=== PATIENT | female | born 1985 | race Caucasian/White ===

== ENCOUNTER 2019-07-30 11:14 | Emergency (ER) | payer OTHER ==
[2019-07-30] MEDS ORDERED: PROMETHAZINE INJ 25 MG/ML AMP ONE (11:58)
[2019-07-30 11:59] LABS: Absolute Lymphocytes (CBC) 1.9 K/uL (0.7-4.9); Basophils % 0.8 % (0-1.3); Hematocrit 38.4 % (36.0-45.0); Lymphocytes % 23.1 % (15.3-44.8); MPV 8.4 fL (7.6-11.3); RBC Red Blood Cell Count 5.21 M/uL (3.86-4.86)
--- NOTE | 2019-07-30 11:59 | RAD REPORT ---
EXAM DESCRIPTION: Dequan Single View07/30/2019 11:52 am CLINICAL HISTORY: Chest pain COMPARISON: none FINDINGS: The lungs appear clear of acute infiltrate. The heart is normal size IMPRESSION: No acute abnormalities displayed
--- NOTE | 2019-07-30 12:03 | RAD REPORT ---
EXAM DESCRIPTION: CT - Head Brain Wo Cont - 07/30/2019 11:53 am CLINICAL HISTORY: Headache COMPARISON: None. TECHNIQUE: Computed axial tomography of the head was obtained. IV contrast was not requested. All CT scans are performed using dose optimization technique as appropriate and may include automated exposure control or mA/KV adjustment according to patient size. FINDINGS: An intracranial bleed is not seen . The ventricles are normal in caliber. No extra-axial fluid collection is noted. Fluid within the sinuses/ mastoids is not seen. IMPRESSION: No acute intracranial abnormality is seen. If patient's symptoms persist MRI of the bra in would be recommended.
[2019-07-30 12:04] LABS: Protime INR 0.99
[2019-07-30 12:05] LABS: Urine Blood NEGATIVE (NEG); Urine Glucose NEGATIVE (NEG); Urine Protein NEGATIVE (NEG); Urine Specific Gravity <1.005 (1.005-1.030)
[2019-07-30 12:09] LABS: Barbiturates NEGATIVE (NEGATIVE); Benzodiazepines NEGATIVE (NEGATIVE); Cocaine NEGATIVE (NEGATIVE); METHAMPHETAM NEGATIVE (NEGATIVE); Methadone NEGATIVE (NEGATIVE); Opiates NEGATIVE (NEGATIVE); Phencyclidine NEGATIVE (NEGATIVE); THC Cannibis POSITIVE (NEGATIVE)
[2019-07-30 12:20] LABS: ALT/SGPT 182 U/L (12-78); AST/SGOT 119 U/L (15-37); Albumin 3.8 g/dL (3.4-5.0); Alkaline Phosphatase 48 U/L (45-117); BUN Blood Urea Nitrogen 11 mg/dL (7-18); Bicarbonate 25 mmol/L (21-32); Bilirubin Direct 0.2 mg/dL (0-0.2); Bilirubin Total 0.4 mg/dL (0.2-1.0); Glucose Level 84 mg/dL (74-106); Magnesium 2.3 mg/dL (1.8-2.4); NT PRO-BNP 97 pg/mL (<125); Potassium 4.3 mmol/L (3.5-5.1); Protein, Total 8.6 g/dL (6.4-8.2); Sodium Level 137 mmol/L (136-145); Troponin (Emerg Dept Use Only) < 0.02 ng/mL (0.0-0.045)
--- NOTE | 2019-07-30 12:47 | EKG ---
Test Date: 2019-07-30 Test Time: 11:26:12 Electrician Master: ZANDER MEASUREMENT RESULTS: Intervals: Rate: 74 OH: 138 QRSD: 86 QT: 402 QTc: 446 [place]: P: 30 OH: 138 QRS: 9 T: 24 INTERPRETIVE STATEMENTS: Normal sinus rhythm Normal ECG No previous ECG available for comparison Electronically Signed On 07-30-19 12:46:50 INFORMATION SYSTEMS SPECIALIST by Steve Delvalle
--- NOTE | 2019-07-30 13:00 | RAD REPORT ---
EXAM DESCRIPTION: CT - Angio Aorta For Dissection - 07/30/2019 12:48 pm CLINICAL HISTORY: . Chest and abdominal pain COMPARISON: None TECHNIQUE: Computed tomography angiography of the chest, abdomen pelvis were obtained. 100 cc Isovue 370 was administered intravenously. Coronal and sagittal reconstruction were performed. MIP 3D reconstruction was performed All CT scans are performed using dose optimization technique as appropriate and may include automated exposure control or mA/KV adjustment according to patient size. FINDINGS: An aortic dissection is not seen. An aortic aneurysm is not displayed. The celiac, SMA and SÁNCHEZ are patent . A lung consolidation is not present. A pericardial effusion is not seen. A pleural effusion is not n oted. Fatty liver Spleen, pancreas adrenals kidneys demonstrate no significant abnormality. The appendix is normal. There no evidence diverticulitis. A 26 millimeter left ovarian cyst without significant free fluid Tiny umbilical hernia IMPRESSION: Negative for an aortic dissection.
[2019-07-30 13:20] LABS: Anisocytosis 2+; Blood Morphology Comment NOTED (NOT SEEN); Platelet Estimate ADEQ; Poikilocytosis 2+; Urine White Blood Cell Casts OK
[2019-07-30] MEDS ORDERED: KETOROLAC 30 MG/ML INJ ONE (13:32)
--- NOTE | 2019-07-30 15:25 | EDPHYS ---
Physician Documentation [facility] Name: Ellen Cedeno Age: 33 yrs Sex: Female : 1985 Arrival Date: 07/30/2019 Time: 11:17 Bed 8 Private MD: ED Physician Butch Huber HPI: 07/30 11:30 This 33 yrs old Female presents to ER via EMS with complaints of Chest Pain, pm1 High Blood Pressure. 11:30 The patient or guardian reports chest pain that is located primarily in the mid-sternal pm1 area. The pain radiates to back. Associated signs and symptoms: Pertinent positives: headache, shortness of breath, Pertinent negatives: dizziness, nausea, palpitations, vomiting. The chest pain is described as sharp. Duration: The patient or guardian reports a single episode, that is still ongoing. Modifying factors: The symptoms are alleviated by nothing. the symptoms are aggravated by nothing. The patient has not experienced similar symptoms in the past. The patient has been recently seen by a physician: just started on hypertensive medications for the past [address] [facility] clinic. Patient currently at [facility] for alcohol abuse. 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 - Coronavirus screen:: The patient has NOT traveled to [place], [place], or [place] in the past 14 days. The patient has NOT had contact with known/suspected case of Coronavirus? Proceed with normal triage procedures. - Social history:: Smoking status: Patient reports the use of cigarette tobacco products, smokes one-half pack cigarettes per day. - Ebola Screening: : No symptoms or risks identified at this time. ROS: 11:30 Constitutional: Negative for fever, chills, and weight loss, Eyes: Negative for injury, pm1 pain, redness, and discharge, ENT: Negative for injury, pain, and discharge, Neck: Negative for injury, pain, and swelling, Abdomen/GI: Negative for abdominal pain, nausea, vomiting, diarrhea, and constipation, Back: Negative for injury and pain, : Negative for injury, bleeding, discharge, and swelling, MS/Extremity: Negative for injury and deformity, Skin: Negative for injury, rash, and discoloration. 11:30 Cardiovascular: Positive for chest pain, Negative for edema, orthopnea, palpitations. 11:30 Respiratory: Positive for shortness of breath, Negative for cough, sputum production, wheezing. 11:30 Neuro: Positive for dizziness, headache, Negative for numbness, tingling. Exam: 11:30 Constitutional: This is a well developed, well nourished patient who is awake, alert, pm1 and in no acute distress. Head/Face: Normocephalic, atraumatic. Eyes: Pupils equal round and reactive to light, extra-ocular motions intact. Lids and lashes normal. Conjunctiva and sclera are non-icteric and not injected. Cornea within normal limits. Periorbital areas with no swelling, redness, or edema. ENT: Nares patent. No nasal discharge, no septal abnormalities noted. Tympanic membranes are normal and external auditory canals are clear. Oropharynx with no redness, swelling, or masses, exudates, or evidence of obstruction, uvula midline. Mucous membranes moist. Neck: Trachea midline, no thyromegaly or masses palpated, and no cervical lymphadenopathy. Supple, full range of motion without nuchal rigidity, or vertebral point tenderness. No Meningismus. Chest/axilla: Normal chest wall appearance and motion. Nontender with no deformity. No lesions are appreciated. Cardiovascular: Regular rate and rhythm with a normal S1 and S2. No gallops, murmurs, or rubs. Normal PMI, no JVD. No pulse deficits. Respiratory: Lungs have equal breath sounds bilaterally, clear to auscultation and percussion. No rales, rhonchi or wheezes noted. No increased work of breathing, no retractions or nasal flaring. Abdomen/GI: Soft, non-tender, with normal bowel sounds. No distension or tympany. No guarding or rebound. No evidence of tenderness throughout. Back: No spinal tenderness. No costovertebral tenderness. Full range of motion. Skin: Warm, dry with normal turgor. Normal color with no rashes, no lesions, and no evidence of cellulitis. MS/ Extremity: Pulses equal, no cyanosis. Neurovascular intact. Full, normal range of motion. 11:30 Neuro: Orientation: is normal, Cranial nerves: CN II- XII are normal as tested, Cerebellar function: normal finger to nose testing, Motor: is normal, moves all fours, Sensation: is normal, no obvious gross deficits. Vital Signs: 11:23 BP 187 / 112; Pulse 82; Resp 16; Temp 97.9; Pulse Ox 100% on R/A; Weight 88.45 kg; hb Height 5 ft. 9 in. (175.26 cm); Pain 6/10; 12:53 BP 165 / 98; Pulse 70; Resp 21; Pulse Ox 99% ; sv 13:32 BP 145 / 80; Pulse 67; Resp 16; Pulse Ox 98% ; sv 11:23 Body Mass Index 28.80 (88.45 kg, 175.26 cm) hb MDM: 11:20 Patient medically screened. pm1 15:22 Data reviewed: vital signs. Data interpreted: Pulse oximetry: on room air is 98 %. pm1 Interpretation: normal. Counseling: I had a detailed discussion with the patient and/or guardian regarding: the historical points, exam findings, and any diagnostic results supporting the discharge/admit diagnosis, lab results, radiology results. 15:22 Refusal of service: The patient/guardian displays adequate decision making capability pm1 and despite a detailed discussion of alternatives, benefits, risks, and consequences refuses: Patient does not want to wait for repeat troponin and possible admission. 07/30 11:30 Order name: Basic Metabolic Panel; Complete Time: 12:24 pm1 07/30 11:30 Order name: CBC with Diff; Complete Time: 13:25 pm1 07/30 11:30 Order name: LFT's; Complete Time: 12:24 pm1 07/30 11:30 Order name: Magnesium; Complete Time: 12:24 pm1 07/30 11:30 Order name: NT PRO-BNP; Complete Time: 12:24 pm1 07/30 11:30 Order name: PT-INR; Complete Time: 12:06 pm1 07/30 11:30 Order name: Troponin (emerg Dept Use Only); Complete Time: 12:24 pm1 07/30 11:30 Order name: XRAY Chest (1 view); Complete Time: 12:06 pm1 07/30 11:30 Order name: CT Head Brain wo Cont; Complete Time: 12:06 pm1 07/30 11:38 Order name: UDS; Complete Time: 12:24 pm1 07/30 11:56 Order name: Urine Dipstick--Ancillary (enter results); Complete Time: 12:06 bd 07/30 12:24 Order name: CT Aorta for Dissection; Complete Time: 13:02 pm1 07/30 13:21 Order name: CBC Smear Scan; Complete Time: 13:25 EDMS 07/30 11:30 Order name: EKG; Complete Time: 11:31 pm1 07/30 11:30 Order name: Cardiac monitoring; Complete Time: 11:52 pm1 07/30 11:30 Order name: EKG - Nurse/Tech; Complete Time: 11:53 pm07/30 11:30 Order name: IV Saline Lock; Complete Time: 11:53 pm07/30 11:30 Order name: Labs collected and sent; Complete Time: 11:53 pm07/30 11:30 Order name: O2 Per Protocol; Complete Time: 11:53 pm07/30 11:30 Order name: O2 Sat Monitoring; Complete Time: 11:53 pm07/30 11:38 Order name: Urine Dipstick-Ancillary (obtain specimen); Complete Time: 11:52 pm07/30 11:38 Order name: Urine Test (obtain specimen); Complete Time: 11:52 pm1 Administered Medications: 12:03 Drug: Phenergan 12.5 mg Route: IVP; Site: left forearm; hb 13:00 Follow up: Response: No adverse reaction sv 13:30 Drug: TORadol - Ketorolac 15 mg Route: IVP; Site: left forearm; hb 14:15 Follow up: Response: No adverse reaction; Pain is decreased hb Disposition: 07/31 07:41 Co-signature as Attending Physician, Butch CRUZ I agree with the assessment and vijay plan of care. Disposition: 07/30/19 15:24 Discharged to Home. Impression: Chest pain, unspecified, Essential (primary) hypertension, Headache. - Condition is Stable. - Discharge Instructions: Nonspecific Chest Pain, General Headache Without Cause, Hypertension, How to Take Your Blood Pressure, [id number], DASH Eating Plan, Managing Your Hypertension. - Medication Reconciliation Form, Thank You Letter, Antibiotic Education, Prescription Opioid Use form. - Follow up: Emergency Department; When: As needed; Reason: Worsening of condition. Follow up: Private Physician; When: 2 - 3 days; Reason: Recheck today's complaints, Continuance of care, Re-evaluation by your physician. - Problem is new. - Symptoms have improved. Signatures: Dispatcher [employer] EDMS Butch Huber MD MD cha Marinas, Patrick, GLADIS VACCINATOR pm1 Chasity Luevano RN RN hb Verde, Stephanie RN sv Corrections: (The following items were deleted from the chart) 07/30 15:35 15:24 07/30/2019 15:24 Discharged to Home. Impression: Chest pain, unspecifiedEssential hb (primary) hypertension; Headache. Condition is Stable. Forms are Medication Reconciliation Form, Thank You Letter, Antibiotic Education, Prescription Opioid Use. Follow up: Emergency Department; When: As needed; Reason: Worsening of condition. Follow up: Private Physician; When: 2 - 3 days; Reason: Recheck today's complaints, Continuance of care, Re-evaluation by your physician. Problem is new. Symptoms have improved. pm1
--- NOTE | 2019-07-30 15:25 | ER ---
Nurse's Notes [facility] Name: Ellen Cedeno Age: 33 yrs Sex: Female : 1985 Arrival Date: 07/30/2019 Time: 11:17 Bed 8 Private MD: Diagnosis: Essential (primary) hypertension;Chest pain, unspecified;Headache Presentation: 07/30 11:19 Presenting complaint: EMS states: Chest pressure that radiates to upper back and SOB x hb 45 mins, on scene BP 245/130. Transition of care: [facility]. Onset of symptoms was July 30, 2019. Risk Assessment: Do you want to hurt yourself or someone else? Patient reports no desire to harm self or others. Initial Sepsis Screen: Does the patient meet any 2 criteria? No. Patient's initial sepsis screen is negative. Does the patient have a suspected source of infection? No. Patient's initial sepsis screen is negative. Care prior to arrival: None. 11:19 Method Of Arrival: EMS: [facility] hb 11:19 Acuity: VINICIUS 3 hb Triage Assessment: 11:24 General: Appears in no apparent distress. Behavior is calm, cooperative. Pain: Pain hb currently is 6 out of 10 on a pain scale. EENT: No signs and/or symptoms were reported regarding the EENT system. Neuro: Level of Consciousness is awake, alert, obeys commands, Oriented to person, place, time, situation. Cardiovascular: Heart tones S1 S2 present Capillary refill < 3 seconds Patient's skin is warm and dry. Respiratory: Airway is patent Respiratory effort is even, unlabored, Respiratory pattern is regular, symmetrical, Breath sounds are clear bilaterally. GI: No signs and/or symptoms were reported involving the gastrointestinal system. : No signs and/or symptoms were reported regarding the genitourinary system. Derm: Skin is pink, warm \T\ dry. Musculoskeletal: No signs and/or symptoms reported regarding the musculoskeletal system. 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 - Coronavirus screen:: The patient has NOT traveled to [place], [place], or [place] in the past 14 days. The patient has NOT had contact with known/suspected case of Coronavirus? Proceed with normal triage procedures. - Social history:: Smoking status: Patient reports the use of cigarette tobacco products, smokes one-half pack cigarettes per day. - Ebola Screening: : No symptoms or risks identified at this time. Screenin:24 Abuse screen: Denies threats or abuse. Denies injuries from another. Nutritional hb screening: No deficits noted. Tuberculosis screening: No symptoms or risk factors identified. Fall Risk None identified. Assessment: 11:25 General: see triage. hb 12:30 Reassessment: Patient appears in no apparent distress at this time. Patient and/or hb family updated on plan of care and expected duration. Pain level reassessed. Patient is alert, oriented x 3, equal unlabored respirations, skin warm/dry/pink. 13:32 Reassessment: Patient is alert, oriented x 3, equal unlabored respirations, skin hb warm/dry/pink. Critical care time stopped, patient has stabilized. Pt c/o pain 8/10, SHEETER WAXER OPERATOR Regis notified, Toradol administered as ordered. . 14:30 Reassessment: Patient appears in no apparent distress at this time. Patient and/or hb family updated on plan of care and expected duration. Pain level reassessed. Patient is alert, oriented x 3, equal unlabored respirations, skin warm/dry/pink. Vital Signs: 11:23 BP 187 / 112; Pulse 82; Resp 16; Temp 97.9; Pulse Ox 100% on R/A; Weight 88.45 kg; hb Height 5 ft. 9 in. (175.26 cm); Pain 6/10; 12:53 BP 165 / 98; Pulse 70; Resp 21; Pulse Ox 99% ; sv 13:32 BP 145 / 80; Pulse 67; Resp 16; Pulse Ox 98% ; sv 11:23 Body Mass Index 28.80 (88.45 kg, 175.26 cm) hb ED Course: 11:17 Patient arrived in ED. hb 11:18 Chasity Luevano, RN is Primary Nurse. hb 11:20 Regis Concepcion NP is PHCP. pm1 11:20 Butch Huber MD is Attending Physician. pm1 11:20 Triage completed. hb 11:23 Arm band placed on. hb 11:24 Patient has correct armband on for positive identification. Placed in gown. Bed in low hb position. Call light in reach. Side rails up X 1. medical coding manager on. Pulse ox on. NIBP on. 11:24 Patient maintains SpO2 saturation greater than 95% on room air. hb 11:30 EKG done, by household appliances service technician. reviewed by Regis Concepcion NP. at1 11:48 Inserted saline lock: 20 gauge in left forearm, using aseptic technique. Blood hb collected. 11:52 UDS Sent. hb 11:53 XRAY Chest (1 view) In Process Unspecified. EDMS 11:54 CT Head Brain wo Cont In Process Unspecified. EDMS 12:50 CT Aorta for Dissection In Process Unspecified. EDMS Administered Medications: 12:03 Drug: Phenergan 12.5 mg Route: IVP; Site: left forearm; hb 13:00 Follow up: Response: No adverse reaction sv 13:30 Drug: TORadol - Ketorolac 15 mg Route: IVP; Site: left forearm; hb 14:15 Follow up: Response: No adverse reaction; Pain is decreased hb Outcome: 15:24 Discharge ordered by MD. pm1 15:35 Patient left the ED. hb Signatures: Dispatcher [employer] EDAndria Watters, RN RN Marisabel Hudson, restaurant area director EKG Tat1 Regis Concepcion NP SHEETER WAXER OPERATOR pm1 Chasity Luevano, RN RN hb
[2019-07-30 16:38] VITALS: TEMP 97.9
[2019-07-30 16:41] VITALS: BP 145/80; O2SAT 98
== END 2019-07-30 15:35 | disposition home or self-care (01) ==
LOC: ER 11:14
DX: I10 Essential (primary) hypertension (principal); R51 Headache; F32.9 Major depressive disorder, single episode, unspecified; F17.210 Nicotine dependence, cigarettes, uncomplicated; Z88.8 Allergy status to other drugs, medicaments and biological substances
CPT/HCPCS: 93005; 85025; 80048; 36415; 83735; 85610; 80076; 80307 ×8; 81003; 84484; 83880; 70450; 71275; 74175; 71045; 96375; 96374; 99285; Q9967; J2550